=== PATIENT | female | born 1930 | race Caucasian/White ===

== ENCOUNTER 2017-06-30 17:22 | Inpatient (IN) ==
[2017-06-30 18:47] LABS: Basophils # 0.1 10*3/uL (0.0-0.2); Basophils % 1.1 % (0.0-0.8); Eosinophils # 0.1 10*3/uL (0.0-0.87); Eosinophils % 1.2 % (0.00-10.9); Hematocrit 38.5 VOL% (35.7-47.0); Hemoglobin 12.9 GM/DL (12.0-16.0); Immature Granulocytes % 0.3 %; Immature Granulocytes Absolute 0.02 #; Lymphocytes # 1.7 10*3/uL (1.4-4.0); Lymphocytes % 21.9 % (21.3-54.2); Mean Corpuscular HGB Conc 33.5 GM/DL (32-36); Mean Corpuscular Hemoglobin 31 PG (27-34); Mean Corpuscular Volume 92.1 FL (87-102); Mean Platelet Volume 10.5 FL (9.6-12.0); Monocytes # 0.8 10*3/uL (0.11-0.8); Monocytes % 10.5 % (1.7-12.7); Neutrophils # 4.9 10*3/uL (1.4-7.4); Platelet Count 277 T/CUMM (130-400); Red Blood Count 4.18 MC/CUMM (3.8-5.5); Red Cell Distribution Width 12.3 % (9.3-17.3); White Blood Count 7.6 T/CUMM (4-12)
[2017-06-30 18:57] LABS: PT Patient Result 10.5 SECS
[2017-06-30 19:10] LABS: Albumin 4.1 G/DL (3.4-5.0); Bilirubin,Total 0.5 MG/DL (0.2-1.0); Calcium 9.4 MG/DL (8.5-10.1); Osmolality,Calculated 277.7 MOS/KG (273-304); Potassium 3.8 MMOL/L (3.5-5.1); Total Protein 7.5 G/DL (6.4-8.3)
[2017-06-30 19:15] LABS: Magnesium 2.4 MG/DL (1.8-2.4)
[2017-06-30 19:16] LABS: Troponin I Only 0.166 NG/ML (0.00-0.045)
[2017-06-30] MEDS ORDERED: MAGNESIUM SULF RIDER 2 GM in PREMIX 1 EACH IV PRN (20:46)
[2017-06-30] MEDS ORDERED: MAGNESIUM SULF RIDER 4 GM in PREMIX 1 EACH IV PRN (20:46)
[2017-06-30] MEDS ORDERED: ONDANSETRON 4 MG/2 ML VIAL IV PRN (20:46)
[2017-06-30 22:02] LABS: CKMB % 9.4 %
[2017-06-30 22:06] LABS: Troponin I Only 0.852 NG/ML (0.00-0.045)
[2017-07-01 00:55] LABS: CKMB % 10.2 %
[2017-07-01 00:56] LABS: Troponin I Only 1.56 NG/ML (0.00-0.045)
[2017-07-01 05:41] LABS: CKMB % 8.7 %
[2017-07-01 05:50] LABS: Troponin I Only 1.58 NG/ML (0.00-0.045)
[2017-07-01] MEDS: METOPROLOL SUCCINATE XL 25 MG TABLET PO SCH (08:38)
[2017-07-01] MEDS: CLOPIDOGREL 75 MG TABLET PO SCH (08:38)
[2017-07-01] MEDS: DILTIAZEM CD 240 MG CAPSULE PO SCH (08:38)
[2017-07-01] MEDS: ASPIRIN EC 81 MG TABLET PO SCH (08:38)
[2017-07-01] MEDS: PANTOPRAZOLE 40 MG TABLET PO SCH (08:38)
[2017-07-01] MEDS ORDERED: BISACODYL 5 MG TABLET PO PRN (12:07)
[2017-07-01] MEDS ORDERED: DOCUSATE SODIUM 100 MG CAPSULE PO PRN (12:07)
[2017-07-01] MEDS ORDERED: MAGNESIUM SULF RIDER 4 GM in PREMIX 1 EACH IV PRN (12:07)
[2017-07-01] MEDS ORDERED: POTASSIUM CHLORIDE 20 MEQ TABLET PO PRN (12:07)
[2017-07-01] MEDS ORDERED: POTASSIUM CHLORIDE 20 MEQ/15 ML UDCUP PER TUBE PRN (12:07)
[2017-07-01] MEDS ORDERED: ZALEPLON 5 MG CAPSULE PO PRN (12:07)
[2017-07-01] MEDS ORDERED: MORPHINE 2 MG/1 ML SYRINGE IV PRN (12:07)
[2017-07-01] MEDS ORDERED: ACETAMINOPHEN 325 MG TABLET PO PRN (12:07)
[2017-07-01] MEDS ORDERED: MAGNESIUM SULF RIDER 2 GM in PREMIX 1 EACH IV PRN ×2 (12:07→15:54)
[2017-07-01] MEDS ORDERED: POLYETHYLENE GLYCOL POWDER 17 GM PACK PO PRN (12:12)
[2017-07-01] MEDS ORDERED: ENOXAPARIN 40 MG/0.4 ML SYRINGE SUBCUT SCH (12:30)
[2017-07-01] MEDS: ENOXAPARIN 60 MG/0.6 ML SYRINGE SUBCUT SCH (14:57)
[2017-07-01] MEDS ORDERED: POTASSIUM CHLORIDE RIDER 10 MEQ in PREMIX 1 EACH IV PRN (15:54)
[2017-07-01] MEDS: CILOSTAZOL 50 MG TABLET PO SCH (21:24)
[2017-07-01] MEDS: PITAVASTATIN 2 MG TABLET PO SCH (21:24)
[2017-07-02] MEDS: ENOXAPARIN 60 MG/0.6 ML SYRINGE SUBCUT SCH ×2 (04:54→15:33)
[2017-07-02 04:58] LABS: Basophils # 0.1 10*3/uL (0.0-0.2); Basophils % 1.3 % (0.0-0.8); Eosinophils # 0.3 10*3/uL (0.0-0.87); Eosinophils % 4.6 % (0.00-10.9); Hematocrit 36.5 VOL% (35.7-47.0); Hemoglobin 11.8 GM/DL (12.0-16.0); Immature Granulocytes % 0.1 %; Immature Granulocytes Absolute 0.01 #; Lymphocytes # 2.3 10*3/uL (1.4-4.0); Lymphocytes % 33.8 % (21.3-54.2); Mean Corpuscular HGB Conc 32.3 GM/DL (32-36); Mean Corpuscular Hemoglobin 31 PG (27-34); Mean Corpuscular Volume 94.3 FL (87-102); Mean Platelet Volume 10.9 FL (9.6-12.0); Monocytes # 0.9 10*3/uL (0.11-0.8); Monocytes % 13.6 % (1.7-12.7); Neutrophils # 3.1 10*3/uL (1.4-7.4); Neutrophils % 46.6 % (38.7-73.9); Platelet Count 258 T/CUMM (130-400); Red Blood Count 3.87 MC/CUMM (3.8-5.5); Red Cell Distribution Width 12.5 % (9.3-17.3); White Blood Count 6.7 T/CUMM (4-12)
[2017-07-02 05:35] LABS: Calcium 8.7 MG/DL (8.5-10.1); Magnesium 2.5 MG/DL (1.8-2.4); Osmolality,Calculated 284.1 MOS/KG (273-304); Potassium 4.6 MMOL/L (3.5-5.1); Risk Ratio 3.84; Thyroid Stimulating Hormone 3.28 uIU/ml (0.358-3.74)
[2017-07-02] MEDS ORDERED: prednisoLONE 5 MG TABLET PO SCH (06:30)
[2017-07-02] MEDS ORDERED: DIAZEPAM 5 MG TABLET PO ONE (07:00)
[2017-07-02] MEDS ORDERED: diphenhydrAMINE CAP 25 MG CAPSULE PO ONE (07:00)
[2017-07-02] MEDS: DILTIAZEM CD 240 MG CAPSULE PO SCH (08:05)
[2017-07-02] MEDS: CILOSTAZOL 50 MG TABLET PO SCH ×2 (08:05→21:16)
[2017-07-02] MEDS: PANTOPRAZOLE 40 MG TABLET PO SCH (08:05)
[2017-07-02] MEDS: CLOPIDOGREL 75 MG TABLET PO SCH (08:05)
[2017-07-02] MEDS: ASPIRIN EC 81 MG TABLET PO SCH (08:05)
[2017-07-02] MEDS: METOPROLOL SUCCINATE XL 25 MG TABLET PO SCH (08:05)
[2017-07-02] MEDS: hydroCHLOROthiazide 12.5 MG CAPSULE PO SCH (08:09)
[2017-07-02] MEDS ORDERED: NITROGLYCERIN DRIP 50 MG/250 ML BOTTLE IV ONE (08:40)
[2017-07-02] MEDS ORDERED: HEPARIN/NACL 0.9% 2 UNITS/ML 2,000 ML IV ONE (08:40)
[2017-07-02] MEDS ORDERED: LIDOCAINE 1% 20 ML VIAL ONE (08:40)
[2017-07-02] MEDS ORDERED: VERAPAMIL 5 MG/2 ML VIAL ONE (08:41)
[2017-07-02] MEDS ORDERED: HYDROmorphone 2 MG/1 ML VIAL ONE (08:50)
[2017-07-02] MEDS ORDERED: MIDAZOLAM 2 MG/2 ML VIAL ONE (08:50)
[2017-07-02] MEDS ORDERED: ONDANSETRON 4 MG/2 ML VIAL ONE (08:58)
[2017-07-02] MEDS ORDERED: CLOPIDOGREL 300 MG TABLET ONE (09:12)
[2017-07-02] MEDS ORDERED: SODIUM CHLORIDE 0.9% 1,000 ML IV SCH (10:00)
[2017-07-02] MEDS: PITAVASTATIN 2 MG TABLET PO SCH (21:16)
[2017-07-03] MEDS: ENOXAPARIN 60 MG/0.6 ML SYRINGE SUBCUT SCH (04:02)
[2017-07-03 05:09] LABS: Basophils # 0.1 10*3/uL (0.0-0.2); Basophils % 1.3 % (0.0-0.8); Eosinophils # 0.4 10*3/uL (0.0-0.87); Eosinophils % 5.9 % (0.00-10.9); Hematocrit 34.6 VOL% (35.7-47.0); Hemoglobin 11.5 GM/DL (12.0-16.0); Immature Granulocytes % 0.4 %; Immature Granulocytes Absolute 0.03 #; Lymphocytes # 1.6 10*3/uL (1.4-4.0); Lymphocytes % 22.7 % (21.3-54.2); Mean Corpuscular HGB Conc 33.2 GM/DL (32-36); Mean Corpuscular Hemoglobin 31 PG (27-34); Mean Corpuscular Volume 92.8 FL (87-102); Mean Platelet Volume 10.9 FL (9.6-12.0); Monocytes % 14.9 % (1.7-12.7); Neutrophils # 3.8 10*3/uL (1.4-7.4); Neutrophils % 54.8 % (38.7-73.9); Platelet Count 252 T/CUMM (130-400); Red Blood Count 3.73 MC/CUMM (3.8-5.5); Red Cell Distribution Width 12.6 % (9.3-17.3)
[2017-07-03 05:46] LABS: Blood Urea Nitrogen 19 MG/DL (7-18); Calcium 8.8 MG/DL (8.5-10.1); Glucose 97 MG/DL (74-106); Osmolality,Calculated 282.3 MOS/KG (273-304); Potassium 4.6 MMOL/L (3.5-5.1); Sodium 141 MMOL/L (136-145)
[2017-07-03 05:47] LABS: Troponin I Only 0.603 NG/ML (0.00-0.045)
[2017-07-03 06:07] LABS: Calcium 8.3 MG/DL (8.5-10.1); Magnesium 2.4 MG/DL (1.8-2.4); Osmolality,Calculated 283.3 MOS/KG (273-304); Potassium 4.6 MMOL/L (3.5-5.1)
[2017-07-03] MEDS: ASPIRIN EC 81 MG TABLET PO SCH (09:18)
[2017-07-03] MEDS: DILTIAZEM CD 240 MG CAPSULE PO SCH (09:18)
[2017-07-03] MEDS: CILOSTAZOL 50 MG TABLET PO SCH (09:19)
[2017-07-03] MEDS: METOPROLOL SUCCINATE XL 25 MG TABLET PO SCH ×2 (09:19→21:48)
[2017-07-03] MEDS: PANTOPRAZOLE 40 MG TABLET PO SCH (09:19)
[2017-07-03] MEDS: CLOPIDOGREL 75 MG TABLET PO SCH (09:19)
[2017-07-03] MEDS: hydroCHLOROthiazide 12.5 MG CAPSULE PO SCH (09:19)
[2017-07-03] MEDS ORDERED: METOPROLOL SUCCINATE XL 25 MG TABLET PO STA (11:09)
[2017-07-03] MEDS ORDERED: DILTIAZEM INJ 100 MG in SODIUM CHLORIDE 0.9% 100 ML IV SCH (11:30)
[2017-07-03] MEDS ORDERED: ENOXAPARIN 30 MG/0.3 ML SYRINGE SUBCUT SCH (16:00)
[2017-07-03] MEDS ORDERED: SIMETHICONE CHEW 80 MG TABLET PO PRN (16:30)
[2017-07-03] MEDS: ASCORBIC ACID 500 MG TABLET PO SCH (21:48)
[2017-07-03] MEDS: PITAVASTATIN 2 MG TABLET PO SCH (21:48)
[2017-07-03] MEDS: APIXABAN 2.5 MG TABLET PO SCH (21:49)
[2017-07-04 05:00] LABS: Basophils % 0.2 % (0.0-0.8); Eosinophils % 0.3 % (0.00-10.9); Hematocrit 31.9 VOL% (35.7-47.0); Hemoglobin 10.6 GM/DL (12.0-16.0); Immature Granulocytes % 0.4 %; Immature Granulocytes Absolute 0.04 #; Lymphocytes # 1.6 10*3/uL (1.4-4.0); Lymphocytes % 16.3 % (21.3-54.2); Mean Corpuscular HGB Conc 33.2 GM/DL (32-36); Mean Corpuscular Hemoglobin 31 PG (27-34); Mean Platelet Volume 10.9 FL (9.6-12.0); Monocytes % 10.6 % (1.7-12.7); Neutrophils # 7.1 10*3/uL (1.4-7.4); Neutrophils % 72.2 % (38.7-73.9); Platelet Count 260 T/CUMM (130-400); Red Blood Count 3.43 MC/CUMM (3.8-5.5); Red Cell Distribution Width 12.1 % (9.3-17.3); White Blood Count 9.8 T/CUMM (4-12)
[2017-07-04 05:35] LABS: Calcium 8.9 MG/DL (8.5-10.1); Magnesium 2.4 MG/DL (1.8-2.4); Osmolality,Calculated 284.3 MOS/KG (273-304); Potassium 4.1 MMOL/L (3.5-5.1)
[2017-07-04] MEDS: CLOPIDOGREL 75 MG TABLET PO SCH (09:05)
[2017-07-04] MEDS: APIXABAN 2.5 MG TABLET PO SCH (09:05)
[2017-07-04] MEDS: ASCORBIC ACID 500 MG TABLET PO SCH (09:05)
[2017-07-04] MEDS: ASPIRIN EC 81 MG TABLET PO SCH (09:05)
[2017-07-04] MEDS: hydroCHLOROthiazide 12.5 MG CAPSULE PO SCH (09:06)
[2017-07-04] MEDS: PANTOPRAZOLE 40 MG TABLET PO SCH (09:06)
[2017-07-04] MEDS: METOPROLOL SUCCINATE XL 25 MG TABLET PO SCH (09:06)
[2017-07-04] MEDS: DILTIAZEM CD 240 MG CAPSULE PO SCH (09:08)
[2017-07-04 12:26] VITALS: BP 126/61
== END 2017-07-04 14:15 | disposition home or self-care (01) | DRG 247 ==
LOC: EDUNIT# → EDBD → N.EDINP 17:22 → N.ED 17:22 → SUATTDRO 19:42 → N.TELES 23:36
PROVIDERS: ADMIT Internal Medicine Cardiovascular Disease; ATTEND Internal Medicine Cardiovascular Disease

== ENCOUNTER 2018-07-20 10:51 | Inpatient (IN) ==
[2018-07-20] MEDS ORDERED: ONDANSETRON 4 MG/2 ML VIAL IV STA (11:29)
[2018-07-20] MEDS ORDERED: NITROGLYCERIN 2% OINT 1 INCH/GM PACK TOP STA (11:29)
[2018-07-20] MEDS ORDERED: ASPIRIN 325 MG TABLET PO STA (11:29)
[2018-07-20] MEDS ORDERED: METOPROLOL TARTRATE 5 MG/5 ML VIAL IV STA (11:43)
[2018-07-20 12:14] LABS: Basophils # 0.1 10*3/uL (0.0-0.2); Basophils % 0.6 % (0.0-0.8); Eosinophils # 0.1 10*3/uL (0.0-0.87); Hematocrit 44.5 VOL% (35.7-47.0); Hemoglobin 14.8 GM/DL (12.0-16.0); Immature Granulocytes % 0.3 %; Immature Granulocytes Absolute 0.04 #; Lymphocytes # 1.7 10*3/uL (1.4-4.0); Mean Corpuscular HGB Conc 33.3 GM/DL (32-36); Mean Corpuscular Hemoglobin 32 PG (27-34); Mean Corpuscular Volume 95.9 FL (87-102); Mean Platelet Volume 11.4 FL (9.6-12.0); Monocytes # 1.2 10*3/uL (0.11-0.8); Monocytes % 9.7 % (1.7-12.7); Neutrophils # 8.9 10*3/uL (1.4-7.4); Neutrophils % 74.4 % (38.7-73.9); Platelet Count 278 T/CUMM (130-400); Red Blood Count 4.64 MC/CUMM (3.8-5.5); Red Cell Distribution Width 12.2 % (9.3-17.3)
[2018-07-20 12:19] LABS: Apearance,Urine CLEAR (Clear); Bilirubin,Urine Negative (Negative); Blood, Urine Negative (Negative); Glucose,Urine (UA) Negative (Negative); Ketones,Urine Negative (Negative); Nitrite,Urine Negative (Negative); Protein,Urine Negative; RBC,Urine <1 /HPF (0-4); Urine Color Colorless (Yellow); Urine Specific Gravity 1.005 (1.001-1.035); Urine Urobilinogen < 2.0 EU/DL (0.2-1.0)
[2018-07-20 12:52] LABS: Partial Thromboplastin Time 26.6 SECS (0-40)
[2018-07-20 13:40] LABS: Albumin 3.7 G/DL (3.4-5.0); Bilirubin,Total 0.5 MG/DL (0.2-1.0); CKMB % 8.4 %; Calcium 8.8 MG/DL (8.5-10.1); Osmolality,Calculated 278.5 MOS/KG (273-304); Potassium 3.4 MMOL/L (3.5-5.1); Total Protein 6.8 G/DL (6.4-8.3)
[2018-07-20 13:46] LABS: Troponin I 0.377 NG/ML (0.00-0.045)
[2018-07-20] MEDS ORDERED: MAGNESIUM SULF RIDER 4 GM in PREMIX 1 EACH IV PRN (15:04)
[2018-07-20] MEDS ORDERED: MAGNESIUM SULF RIDER 2 GM in PREMIX 1 EACH IV PRN (15:04)
[2018-07-20] MEDS ORDERED: ZALEPLON 5 MG CAPSULE PO PRN (15:04)
[2018-07-20] MEDS ORDERED: ACETAMINOPHEN 325 MG TABLET PO PRN (15:04)
[2018-07-20] MEDS ORDERED: DOCUSATE SODIUM 100 MG CAPSULE PO PRN (15:04)
[2018-07-20] MEDS: FUROSEMIDE 40 MG/4 ML VIAL IV SCH (18:14)
[2018-07-20] MEDS: POTASSIUM CHLORIDE 20 MEQ TABLET PO SCH (18:14)
[2018-07-20] MEDS: ENOXAPARIN 60 MG/0.6 ML SYRINGE SUBCUT SCH (18:14)
[2018-07-20] MEDS: NITROGLYCERIN 2% OINT 1 INCH/GM PACK TOP SCH ×2 (18:15→23:34)
[2018-07-20] MEDS: METOPROLOL TARTRATE 50 MG TABLET PO SCH (20:36)
[2018-07-20] MEDS: SOTALOL 80 MG TABLET PO SCH (20:36)
[2018-07-20] MEDS: ASCORBIC ACID 500 MG TABLET PO SCH (20:59)
[2018-07-20] MEDS: MULTIVITAMIN (CENTRUM) TABLET PO SCH (20:59)
[2018-07-21 05:37] LABS: Basophils # 0.1 10*3/uL (0.0-0.2); Eosinophils # 0.1 10*3/uL (0.0-0.87); Eosinophils % 1.7 % (0.00-10.9); Hematocrit 36.9 VOL% (35.7-47.0); Immature Granulocytes % 0.4 %; Immature Granulocytes Absolute 0.03 #; Lymphocytes # 2.7 10*3/uL (1.4-4.0); Lymphocytes % 32.7 % (21.3-54.2); Mean Corpuscular HGB Conc 32.5 GM/DL (32-36); Mean Corpuscular Hemoglobin 32 PG (27-34); Mean Corpuscular Volume 96.9 FL (87-102); Monocytes % 12.3 % (1.7-12.7); Neutrophils # 4.4 10*3/uL (1.4-7.4); Neutrophils % 51.9 % (38.7-73.9); Platelet Count 223 T/CUMM (130-400); Red Blood Count 3.81 MC/CUMM (3.8-5.5); Red Cell Distribution Width 12.4 % (9.3-17.3); White Blood Count 8.4 T/CUMM (4-12)
[2018-07-21 05:52] LABS: Calcium 8.7 MG/DL (8.5-10.1); Osmolality,Calculated 280.4 MOS/KG (273-304); Potassium 3.7 MMOL/L (3.5-5.1)
[2018-07-21] MEDS: ENOXAPARIN 60 MG/0.6 ML SYRINGE SUBCUT SCH ×2 (06:00→17:29)
[2018-07-21] MEDS: NITROGLYCERIN 2% OINT 1 INCH/GM PACK TOP SCH ×3 (06:23→17:29)
[2018-07-21] MEDS ORDERED: MAGNESIUM SULF RIDER 2 GM in PREMIX 1 EACH IV PRN ×2 (08:59→09:22)
[2018-07-21] MEDS ORDERED: POTASSIUM CHLORIDE RIDER 10 MEQ in PREMIX 1 EACH IV PRN ×2 (08:59→09:22)
[2018-07-21] MEDS ORDERED: FUROSEMIDE 40 MG TABLET PO SCH (09:00)
[2018-07-21] MEDS ORDERED: DILTIAZEM CD 240 MG CAPSULE PO SCH (09:00)
[2018-07-21] MEDS: ASPIRIN EC 81 MG TABLET PO SCH (09:09)
[2018-07-21] MEDS: DOCUSATE SODIUM 100 MG CAPSULE PO SCH (09:10)
[2018-07-21] MEDS: SOTALOL 80 MG TABLET PO SCH ×2 (09:10→21:11)
[2018-07-21] MEDS: ASCORBIC ACID 500 MG TABLET PO SCH ×2 (09:10→21:11)
[2018-07-21] MEDS: CLOPIDOGREL 75 MG TABLET PO SCH (09:10)
[2018-07-21] MEDS: FUROSEMIDE 40 MG/4 ML VIAL IV SCH (09:10)
[2018-07-21] MEDS: POTASSIUM CHLORIDE 20 MEQ TABLET PO SCH (09:10)
[2018-07-21] MEDS: MULTIVITAMIN (CENTRUM) TABLET PO SCH ×2 (09:10→21:11)
[2018-07-21] MEDS: METOPROLOL TARTRATE 50 MG TABLET PO SCH ×2 (09:10→21:12)
[2018-07-21] MEDS: PANTOPRAZOLE 40 MG TABLET PO SCH (09:10)
[2018-07-21] MEDS ORDERED: diphenhydrAMINE CAP 25 MG CAPSULE PO PRN (09:40)
[2018-07-21] MEDS ORDERED: MAGNESIUM HYDROXIDE SUSP 30 ML UDCUP PO ONE (09:40)
[2018-07-21] MEDS: ROSUVASTATIN 10 MG TABLET PO SCH (21:11)
[2018-07-22] MEDS: NITROGLYCERIN 2% OINT 1 INCH/GM PACK TOP SCH ×4 (02:28→11:09)
[2018-07-22] MEDS: SODIUM CHLORIDE 0.45% 1,000 ML IV SCH ×4 (05:00→22:48)
[2018-07-22 05:56] LABS: Basophils # 0.1 10*3/uL (0.0-0.2); Basophils % 0.6 % (0.0-0.8); Eosinophils # 0.1 10*3/uL (0.0-0.87); Eosinophils % 1.4 % (0.00-10.9); Hematocrit 36.1 VOL% (35.7-47.0); Hemoglobin 11.8 GM/DL (12.0-16.0); Immature Granulocytes % 0.3 %; Immature Granulocytes Absolute 0.03 #; Lymphocytes # 2.9 10*3/uL (1.4-4.0); Lymphocytes % 30.2 % (21.3-54.2); Mean Corpuscular HGB Conc 32.7 GM/DL (32-36); Mean Corpuscular Hemoglobin 32 PG (27-34); Mean Corpuscular Volume 97.3 FL (87-102); Mean Platelet Volume 11.8 FL (9.6-12.0); Monocytes # 1.4 10*3/uL (0.11-0.8); Monocytes % 13.9 % (1.7-12.7); Neutrophils # 5.2 10*3/uL (1.4-7.4); Neutrophils % 53.6 % (38.7-73.9); Platelet Count 224 T/CUMM (130-400); Red Blood Count 3.71 MC/CUMM (3.8-5.5); Red Cell Distribution Width 12.4 % (9.3-17.3); White Blood Count 9.7 T/CUMM (4-12)
[2018-07-22 06:03] LABS: Calcium 8.8 MG/DL (8.5-10.1); Osmolality,Calculated 280.5 MOS/KG (273-304)
[2018-07-22] MEDS: ONDANSETRON 4 MG/2 ML VIAL IV PRN (07:40)
[2018-07-22] MEDS: MORPHINE 4 MG/1 ML VIAL IV PRN (07:46)
[2018-07-22] MEDS: METOPROLOL TARTRATE 50 MG TABLET PO SCH ×2 (09:53→20:49)
[2018-07-22] MEDS: PANTOPRAZOLE 40 MG TABLET PO SCH (09:53)
[2018-07-22] MEDS: SOTALOL 80 MG TABLET PO SCH ×2 (09:53→20:49)
[2018-07-22] MEDS: ASCORBIC ACID 500 MG TABLET PO SCH ×2 (09:54→21:08)
[2018-07-22] MEDS: MULTIVITAMIN (CENTRUM) TABLET PO SCH ×2 (09:54→21:08)
[2018-07-22] MEDS: DOCUSATE SODIUM 100 MG CAPSULE PO SCH (09:54)
[2018-07-22] MEDS: ASPIRIN EC 81 MG TABLET PO SCH (10:24)
[2018-07-22] MEDS: CLOPIDOGREL 75 MG TABLET PO SCH (10:25)
[2018-07-22] MEDS ORDERED: LIDOCAINE 1% 20 ML VIAL ONE (10:51)
[2018-07-22] MEDS ORDERED: HEPARIN/NACL 0.9% 2 UNITS/ML 1,000 ML IV ONE (10:51)
[2018-07-22] MEDS ORDERED: DIAZEPAM 5 MG TABLET PO ONE (11:00)
[2018-07-22] MEDS ORDERED: diphenhydrAMINE CAP 25 MG CAPSULE PO ONE (11:00)
[2018-07-22] MEDS ORDERED: NITROGLYCERIN DRIP 50 MG/250 ML BOTTLE IV ONE (11:09)
[2018-07-22] MEDS ORDERED: HYDROmorphone 2 MG/1 ML VIAL ONE (11:09)
[2018-07-22] MEDS ORDERED: MIDAZOLAM 2 MG/2 ML VIAL ONE (11:10)
[2018-07-22] MEDS ORDERED: VERAPAMIL 5 MG/2 ML VIAL ONE (11:10)
[2018-07-22] MEDS ORDERED: ONDANSETRON 4 MG/2 ML VIAL ONE (11:18)
[2018-07-22] MEDS ORDERED: ENOXAPARIN 30 MG/0.3 ML SYRINGE ONE (11:31)
[2018-07-22] MEDS: POTASSIUM CHLORIDE 20 MEQ TABLET PO SCH (14:55)
[2018-07-22] MEDS: FUROSEMIDE 40 MG/4 ML VIAL IV SCH (16:02)
[2018-07-22 19:14] LABS: Basophils # 0.1 10*3/uL (0.0-0.2); Basophils % 0.6 % (0.0-0.8); Eosinophils # 0.1 10*3/uL (0.0-0.87); Eosinophils % 0.8 % (0.00-10.9); Hematocrit 37.7 VOL% (35.7-47.0); Hemoglobin 12.3 GM/DL (12.0-16.0); Immature Granulocytes % 0.5 %; Immature Granulocytes Absolute 0.08 #; Lymphocytes # 1.7 10*3/uL (1.4-4.0); Lymphocytes % 10.4 % (21.3-54.2); Mean Corpuscular HGB Conc 32.6 GM/DL (32-36); Mean Corpuscular Hemoglobin 32 PG (27-34); Mean Corpuscular Volume 98.4 FL (87-102); Mean Platelet Volume 11.1 FL (9.6-12.0); Monocytes # 2.7 10*3/uL (0.11-0.8); Monocytes % 15.9 % (1.7-12.7); Neutrophils % 71.8 % (38.7-73.9); Platelet Count 231 T/CUMM (130-400); Red Blood Count 3.83 MC/CUMM (3.8-5.5); Red Cell Distribution Width 12.3 % (9.3-17.3); White Blood Count 16.7 T/CUMM (4-12)
[2018-07-22 20:58] LABS: Band Neutrophils 1 % (0-10); Lymphocytes 11 % (20-55); Platelet Estimate Normal; Segmented Neutrophils 76 % (50-85); Total Cells Counted 100
[2018-07-23 05:50] LABS: Calcium 8.2 MG/DL (8.5-10.1); Osmolality,Calculated 263.7 MOS/KG (273-304); Potassium 4.2 MMOL/L (3.5-5.1)
[2018-07-23] MEDS: SODIUM CHLORIDE 0.45% 1,000 ML IV SCH ×3 (06:18→21:09)
[2018-07-23 07:17] LABS: Basophils # 0.1 10*3/uL (0.0-0.2); Basophils % 0.5 % (0.0-0.8); Eosinophils # 0.2 10*3/uL (0.0-0.87); Eosinophils % 1.8 % (0.00-10.9); Hemoglobin 11.9 GM/DL (12.0-16.0); Immature Granulocytes % 0.5 %; Immature Granulocytes Absolute 0.06 #; Lymphocytes # 2.2 10*3/uL (1.4-4.0); Lymphocytes % 19.4 % (21.3-54.2); Mean Corpuscular HGB Conc 33.1 GM/DL (32-36); Mean Corpuscular Hemoglobin 32 PG (27-34); Mean Corpuscular Volume 98.1 FL (87-102); Mean Platelet Volume 11.3 FL (9.6-12.0); Monocytes # 1.6 10*3/uL (0.11-0.8); Monocytes % 14.3 % (1.7-12.7); Neutrophils # 7.2 10*3/uL (1.4-7.4); Neutrophils % 63.5 % (38.7-73.9); Platelet Count 207 T/CUMM (130-400); Red Blood Count 3.67 MC/CUMM (3.8-5.5); Red Cell Distribution Width 12.1 % (9.3-17.3); White Blood Count 11.4 T/CUMM (4-12)
[2018-07-23] MEDS ORDERED: ISOSORBIDE MONONITRATE 30 MG TABLET PO SCH (09:00)
[2018-07-23] MEDS: MULTIVITAMIN (CENTRUM) TABLET PO SCH ×2 (09:16→21:21)
[2018-07-23] MEDS: CLOPIDOGREL 75 MG TABLET PO SCH (09:16)
[2018-07-23] MEDS: ASPIRIN EC 81 MG TABLET PO SCH (09:16)
[2018-07-23] MEDS: ASCORBIC ACID 500 MG TABLET PO SCH ×2 (09:16→21:21)
[2018-07-23] MEDS: DOCUSATE SODIUM 100 MG CAPSULE PO SCH (09:17)
[2018-07-23] MEDS: POTASSIUM CHLORIDE 20 MEQ TABLET PO SCH (09:17)
[2018-07-23] MEDS: PANTOPRAZOLE 40 MG TABLET PO SCH (09:17)
[2018-07-23] MEDS: SOTALOL 80 MG TABLET PO SCH ×2 (09:18→21:09)
[2018-07-23] MEDS: FUROSEMIDE 40 MG/4 ML VIAL IV SCH (09:19)
[2018-07-23] MEDS: METOPROLOL TARTRATE 50 MG TABLET PO SCH ×2 (09:19→21:10)
[2018-07-23] MEDS: DOXYCYCLINE HYCLATE 100 MG CAPSULE PO SCH ×2 (13:26→22:51)
[2018-07-23] MEDS ORDERED: NITROGLYCERIN SL 0.4 MG TABLET SL ONE ×2 (18:32→18:44)
[2018-07-23] MEDS ORDERED: ALUM/MAG/SIMETH/LIDO VISC 1:1 30 ML BOTTLE PO ONE ×2 (19:05→19:07)
[2018-07-23] MEDS: MORPHINE 4 MG/1 ML VIAL IV PRN (19:42)
[2018-07-23] MEDS: ROSUVASTATIN 10 MG TABLET PO SCH (21:21)
[2018-07-24] MEDS: NITROGLYCERIN SL 0.4 MG TABLET SL PRN ×6 (01:57→19:59)
[2018-07-24] MEDS: MORPHINE 4 MG/1 ML VIAL IV PRN ×2 (02:00→19:42)
[2018-07-24] MEDS: SODIUM CHLORIDE 0.45% 1,000 ML IV SCH (03:53)
[2018-07-24] MEDS: PANTOPRAZOLE 40 MG TABLET PO SCH (08:45)
[2018-07-24] MEDS: ASCORBIC ACID 500 MG TABLET PO SCH ×2 (08:45→21:31)
[2018-07-24] MEDS: POTASSIUM CHLORIDE 20 MEQ TABLET PO SCH (08:45)
[2018-07-24] MEDS: ASPIRIN EC 81 MG TABLET PO SCH (08:45)
[2018-07-24] MEDS: DOCUSATE SODIUM 100 MG CAPSULE PO SCH (08:45)
[2018-07-24] MEDS: CLOPIDOGREL 75 MG TABLET PO SCH (08:45)
[2018-07-24] MEDS: MULTIVITAMIN (CENTRUM) TABLET PO SCH ×2 (08:45→21:31)
[2018-07-24] MEDS: SOTALOL 80 MG TABLET PO SCH ×2 (08:46→21:31)
[2018-07-24] MEDS: ISOSORBIDE MONONITRATE 30 MG TABLET PO SCH (08:46)
[2018-07-24] MEDS: METOPROLOL TARTRATE 50 MG TABLET PO SCH ×2 (08:46→21:31)
[2018-07-24] MEDS: DOXYCYCLINE HYCLATE 100 MG CAPSULE PO SCH ×2 (08:46→21:31)
[2018-07-24] MEDS: FUROSEMIDE 40 MG/4 ML VIAL IV SCH (08:47)
[2018-07-24] MEDS ORDERED: MAGNESIUM SULF RIDER 2 GM in PREMIX 1 EACH IV PRN (11:13)
[2018-07-24] MEDS ORDERED: POTASSIUM CHLORIDE RIDER 10 MEQ in PREMIX 1 EACH IV PRN (11:13)
[2018-07-24] MEDS ORDERED: SODIUM CHLORIDE 0.45% 1,000 ML IV SCH (11:30)
[2018-07-24 11:48] LABS: Apearance,Urine CLEAR (Clear); Bacteria,Urine Occasional /HPF (Few); Bilirubin,Urine Negative (Negative); Blood, Urine Negative (Negative); Glucose,Urine (UA) Negative (Negative); Ketones,Urine Negative (Negative); Mucus,Urine Occasional /LPF (Occasional); Nitrite,Urine Negative (Negative); Protein,Urine Negative; RBC,Urine 1 /HPF (0-4); Urine Color Yellow (Yellow); Urine Specific Gravity 1.005 (1.001-1.035); Urine Urobilinogen < 2.0 EU/DL (0.2-1.0)
[2018-07-24] MEDS ORDERED: ISOSORBIDE MONONITRATE 30 MG TABLET PO ONE (21:00)
[2018-07-25 04:21] LABS: Basophils # 0.1 10*3/uL (0.0-0.2); Basophils % 0.6 % (0.0-0.8); Eosinophils # 0.2 10*3/uL (0.0-0.87); Eosinophils % 2.1 % (0.00-10.9); Hematocrit 31.7 VOL% (35.7-47.0); Hemoglobin 10.5 GM/DL (12.0-16.0); Immature Granulocytes % 0.4 %; Immature Granulocytes Absolute 0.04 #; Lymphocytes # 2.5 10*3/uL (1.4-4.0); Lymphocytes % 23.4 % (21.3-54.2); Mean Corpuscular HGB Conc 33.1 GM/DL (32-36); Mean Corpuscular Hemoglobin 32 PG (27-34); Mean Corpuscular Volume 97.5 FL (87-102); Mean Platelet Volume 11.6 FL (9.6-12.0); Monocytes # 1.4 10*3/uL (0.11-0.8); Monocytes % 13.3 % (1.7-12.7); Neutrophils # 6.5 10*3/uL (1.4-7.4); Neutrophils % 60.2 % (38.7-73.9); Platelet Count 189 T/CUMM (130-400); Red Blood Count 3.25 MC/CUMM (3.8-5.5); Red Cell Distribution Width 12.3 % (9.3-17.3); White Blood Count 10.7 T/CUMM (4-12)
[2018-07-25 04:50] LABS: Calcium 8.8 MG/DL (8.5-10.1); Osmolality,Calculated 277.7 MOS/KG (273-304); Potassium 4.1 MMOL/L (3.5-5.1)
[2018-07-25] MEDS ORDERED: DIAZEPAM 5 MG TABLET PO ONE (06:00)
[2018-07-25] MEDS ORDERED: diphenhydrAMINE CAP 25 MG CAPSULE PO ONE (06:00)
[2018-07-25] MEDS: SODIUM CHLORIDE 0.45% 1,000 ML IV SCH ×3 (06:03→22:53)
[2018-07-25] MEDS: FUROSEMIDE 40 MG/4 ML VIAL IV SCH (08:43)
[2018-07-25] MEDS ORDERED: HEPARIN/NACL 0.9% 2 UNITS/ML 1,000 ML IV ONE (09:12)
[2018-07-25] MEDS: DOXYCYCLINE HYCLATE 100 MG CAPSULE PO SCH ×2 (11:28→22:36)
[2018-07-25] MEDS: PANTOPRAZOLE 40 MG TABLET PO SCH (11:28)
[2018-07-25] MEDS: ASPIRIN EC 81 MG TABLET PO SCH (11:28)
[2018-07-25] MEDS: CLOPIDOGREL 75 MG TABLET PO SCH (11:28)
[2018-07-25] MEDS: ISOSORBIDE MONONITRATE 30 MG TABLET PO SCH (11:28)
[2018-07-25] MEDS: ONDANSETRON 4 MG/2 ML VIAL IV PRN (11:40)
[2018-07-25] MEDS: POTASSIUM CHLORIDE 20 MEQ TABLET PO SCH (11:43)
[2018-07-25] MEDS: DOCUSATE SODIUM 100 MG CAPSULE PO SCH (11:43)
[2018-07-25] MEDS: METOPROLOL TARTRATE 50 MG TABLET PO SCH (11:43)
[2018-07-25] MEDS: MULTIVITAMIN (CENTRUM) TABLET PO SCH ×2 (11:43→21:52)
[2018-07-25] MEDS: SOTALOL 80 MG TABLET PO SCH ×2 (11:43→21:52)
[2018-07-25] MEDS: ASCORBIC ACID 500 MG TABLET PO SCH ×2 (11:44→21:52)
[2018-07-25] MEDS ORDERED: LIDOCAINE 1% 20 ML VIAL ONE (11:59)
[2018-07-25] MEDS ORDERED: HYDROmorphone 2 MG/1 ML VIAL ONE (12:08)
[2018-07-25] MEDS ORDERED: MIDAZOLAM 2 MG/2 ML VIAL ONE (12:08)
[2018-07-25] MEDS ORDERED: BIVALIRUDIN 250 MG VIAL IV ONE (12:59)
[2018-07-25] MEDS ORDERED: MAGNESIUM HYDROXIDE SUSP 30 ML UDCUP PO PRN (13:06)
[2018-07-25] MEDS ORDERED: BISACODYL 5 MG TABLET PO PRN (13:07)
[2018-07-25] MEDS ORDERED: LABETALOL 20 MG/4 ML SYRINGE IV ONE (13:51)
[2018-07-25] MEDS ORDERED: TICAGRELOR 90 MG TABLET ONE (13:56)
[2018-07-25] MEDS: TICAGRELOR 90 MG TABLET PO SCH (21:52)
[2018-07-25] MEDS: ROSUVASTATIN 10 MG TABLET PO SCH (21:52)
[2018-07-26 05:01] LABS: Basophils % 0.3 % (0.0-0.8); Eosinophils # 0.3 10*3/uL (0.0-0.87); Eosinophils % 2.2 % (0.00-10.9); Hematocrit 31.7 VOL% (35.7-47.0); Hemoglobin 10.6 GM/DL (12.0-16.0); Immature Granulocytes % 0.4 %; Immature Granulocytes Absolute 0.05 #; Lymphocytes # 1.7 10*3/uL (1.4-4.0); Lymphocytes % 14.3 % (21.3-54.2); Mean Corpuscular HGB Conc 33.4 GM/DL (32-36); Mean Corpuscular Hemoglobin 32 PG (27-34); Mean Corpuscular Volume 96.4 FL (87-102); Mean Platelet Volume 11.6 FL (9.6-12.0); Monocytes # 1.5 10*3/uL (0.11-0.8); Monocytes % 12.3 % (1.7-12.7); Neutrophils # 8.3 10*3/uL (1.4-7.4); Neutrophils % 70.5 % (38.7-73.9); Platelet Count 200 T/CUMM (130-400); Red Blood Count 3.29 MC/CUMM (3.8-5.5); Red Cell Distribution Width 12.2 % (9.3-17.3); White Blood Count 11.8 T/CUMM (4-12)
[2018-07-26 05:24] LABS: Troponin I 0.809 NG/ML (0.00-0.045)
[2018-07-26 05:26] LABS: Calcium 8.5 MG/DL (8.5-10.1); Osmolality,Calculated 264.5 MOS/KG (273-304); Potassium 4.5 MMOL/L (3.5-5.1)
[2018-07-26] MEDS: SODIUM CHLORIDE 0.45% 1,000 ML IV SCH (07:14)
[2018-07-26] MEDS: ASCORBIC ACID 500 MG TABLET PO SCH ×2 (09:06→20:39)
[2018-07-26] MEDS: SOTALOL 80 MG TABLET PO SCH ×2 (09:06→20:44)
[2018-07-26] MEDS: MULTIVITAMIN (CENTRUM) TABLET PO SCH ×2 (09:06→20:39)
[2018-07-26] MEDS: DOXYCYCLINE HYCLATE 100 MG CAPSULE PO SCH ×2 (09:06→20:39)
[2018-07-26] MEDS: PANTOPRAZOLE 40 MG TABLET PO SCH (09:06)
[2018-07-26] MEDS: POTASSIUM CHLORIDE 20 MEQ TABLET PO SCH (09:06)
[2018-07-26] MEDS: METOPROLOL TARTRATE 25 MG TABLET PO SCH (09:06)
[2018-07-26] MEDS: ISOSORBIDE MONONITRATE 30 MG TABLET PO SCH (09:06)
[2018-07-26] MEDS: DOCUSATE SODIUM 100 MG CAPSULE PO SCH (09:06)
[2018-07-26] MEDS: TICAGRELOR 90 MG TABLET PO SCH ×2 (09:06→20:39)
[2018-07-26] MEDS: ASPIRIN EC 81 MG TABLET PO SCH (09:06)
[2018-07-27 04:50] LABS: Basophils # 0.1 10*3/uL (0.0-0.2); Basophils % 0.5 % (0.0-0.8); Eosinophils # 0.3 10*3/uL (0.0-0.87); Eosinophils % 3.1 % (0.00-10.9); Hematocrit 28.8 VOL% (35.7-47.0); Hemoglobin 9.6 GM/DL (12.0-16.0); Immature Granulocytes % 0.4 %; Immature Granulocytes Absolute 0.04 #; Lymphocytes # 1.8 10*3/uL (1.4-4.0); Lymphocytes % 19.1 % (21.3-54.2); Mean Corpuscular HGB Conc 33.3 GM/DL (32-36); Mean Corpuscular Hemoglobin 32 PG (27-34); Mean Corpuscular Volume 96.6 FL (87-102); Mean Platelet Volume 11.6 FL (9.6-12.0); Monocytes # 1.4 10*3/uL (0.11-0.8); Monocytes % 15.1 % (1.7-12.7); Neutrophils # 5.7 10*3/uL (1.4-7.4); Neutrophils % 61.8 % (38.7-73.9); Platelet Count 172 T/CUMM (130-400); Red Blood Count 2.98 MC/CUMM (3.8-5.5); Red Cell Distribution Width 12.2 % (9.3-17.3); White Blood Count 9.3 T/CUMM (4-12)
[2018-07-27 05:01] LABS: Calcium 8.7 MG/DL (8.5-10.1); Osmolality,Calculated 273.8 MOS/KG (273-304); Potassium 4.2 MMOL/L (3.5-5.1)
[2018-07-27 07:53] VITALS: BP 151/72
[2018-07-27] MEDS: ISOSORBIDE MONONITRATE 30 MG TABLET PO SCH (10:04)
[2018-07-27] MEDS: TICAGRELOR 90 MG TABLET PO SCH (10:04)
[2018-07-27] MEDS: SOTALOL 80 MG TABLET PO SCH (10:04)
[2018-07-27] MEDS: ASPIRIN EC 81 MG TABLET PO SCH (10:04)
[2018-07-27] MEDS: METOPROLOL TARTRATE 25 MG TABLET PO SCH (10:04)
[2018-07-27] MEDS: PANTOPRAZOLE 40 MG TABLET PO SCH (10:04)
[2018-07-27] MEDS: ASCORBIC ACID 500 MG TABLET PO SCH (10:05)
[2018-07-27] MEDS: MULTIVITAMIN (CENTRUM) TABLET PO SCH (10:05)
[2018-07-27] MEDS: POTASSIUM CHLORIDE 20 MEQ TABLET PO SCH (10:05)
[2018-07-27] MEDS: DOCUSATE SODIUM 100 MG CAPSULE PO SCH (10:05)
[2018-07-27] MEDS: DOXYCYCLINE HYCLATE 100 MG CAPSULE PO SCH (10:12)
== END 2018-07-27 11:31 | disposition home or self-care (01) | DRG 247 ==
LOC: EDUNIT# → EDBD → N.ED 10:51 → N.EDINP 15:04 → N.TELES 16:11
PROVIDERS: ADMIT Internal Medicine Clinical Cardiac Electrophysiology; ATTEND Internal Medicine Clinical Cardiac Electrophysiology

== ENCOUNTER 2018-07-29 11:51 | Observation (INO) ==
[2018-07-29 12:49] LABS: Basophils # 0.1 10*3/uL (0.0-0.2); Basophils % 0.5 % (0.0-0.8); Eosinophils # 0.3 10*3/uL (0.0-0.87); Eosinophils % 2.7 % (0.00-10.9); Hematocrit 35.9 VOL% (35.7-47.0); Hemoglobin 11.7 GM/DL (12.0-16.0); Immature Granulocytes % 0.7 %; Immature Granulocytes Absolute 0.08 #; Lymphocytes # 1.6 10*3/uL (1.4-4.0); Lymphocytes % 13.9 % (21.3-54.2); Mean Corpuscular HGB Conc 32.6 GM/DL (32-36); Mean Corpuscular Hemoglobin 32 PG (27-34); Mean Corpuscular Volume 98.6 FL (87-102); Mean Platelet Volume 10.7 FL (9.6-12.0); Monocytes # 1.6 10*3/uL (0.11-0.8); Monocytes % 13.3 % (1.7-12.7); Neutrophils # 8.1 10*3/uL (1.4-7.4); Neutrophils % 68.9 % (38.7-73.9); Platelet Count 253 T/CUMM (130-400); Red Blood Count 3.64 MC/CUMM (3.8-5.5); Red Cell Distribution Width 13.1 % (9.3-17.3); White Blood Count 11.7 T/CUMM (4-12)
[2018-07-29 13:09] LABS: Albumin 3.4 G/DL (3.4-5.0); Bilirubin,Total 0.6 MG/DL (0.2-1.0); Calcium 9.3 MG/DL (8.5-10.1); Potassium 3.9 MMOL/L (3.5-5.1); Total Protein 6.9 G/DL (6.4-8.3)
[2018-07-29] MEDS ORDERED: MAGNESIUM SULF RIDER 4 GM in PREMIX 1 EACH IV PRN (14:25)
[2018-07-29] MEDS ORDERED: ONDANSETRON 4 MG/2 ML VIAL IV PRN (14:25)
[2018-07-29] MEDS ORDERED: PROMETHAZINE 25 MG TABLET PO PRN (14:25)
[2018-07-29] MEDS ORDERED: ZALEPLON 5 MG CAPSULE PO PRN (14:25)
[2018-07-29] MEDS ORDERED: BISACODYL 5 MG TABLET PO PRN (14:25)
[2018-07-29] MEDS ORDERED: DOCUSATE SODIUM 100 MG CAPSULE PO PRN (14:25)
[2018-07-29] MEDS ORDERED: diphenhydrAMINE CAP 25 MG CAPSULE PO PRN (14:25)
[2018-07-29] MEDS ORDERED: MAGNESIUM SULF RIDER 2 GM in PREMIX 1 EACH IV PRN (14:25)
[2018-07-29] MEDS ORDERED: ENOXAPARIN 40 MG/0.4 ML SYRINGE SUBCUT ONE (14:27)
[2018-07-29] MEDS ORDERED: MORPHINE 4 MG/1 ML VIAL IV PRN (14:29)
[2018-07-29] MEDS: MULTIVITAMIN (CENTRUM) TABLET PO SCH (21:09)
[2018-07-29] MEDS: ASCORBIC ACID 500 MG TABLET PO SCH (21:09)
[2018-07-29] MEDS: SOTALOL 80 MG TABLET PO SCH (21:09)
[2018-07-29] MEDS: NITROGLYCERIN SL 0.4 MG TABLET SL PRN ×2 (21:18→21:24)
[2018-07-29] MEDS ORDERED: dilTIAZem Drip 125 MG/125 ML PREMIX IV ONE (21:42)
[2018-07-29] MEDS: dilTIAZem Drip 125 MG/125 ML PREMIX IV SCH (21:56)
[2018-07-30 04:22] LABS: Basophils # 0.1 10*3/uL (0.0-0.2); Basophils % 0.7 % (0.0-0.8); Eosinophils # 0.3 10*3/uL (0.0-0.87); Eosinophils % 2.5 % (0.00-10.9); Hematocrit 31.6 VOL% (35.7-47.0); Hemoglobin 10.3 GM/DL (12.0-16.0); Immature Granulocytes % 0.5 %; Immature Granulocytes Absolute 0.06 #; Lymphocytes # 2.4 10*3/uL (1.4-4.0); Lymphocytes % 20.9 % (21.3-54.2); Mean Corpuscular HGB Conc 32.6 GM/DL (32-36); Mean Corpuscular Hemoglobin 32 PG (27-34); Mean Corpuscular Volume 98.8 FL (87-102); Mean Platelet Volume 11.2 FL (9.6-12.0); Monocytes # 1.3 10*3/uL (0.11-0.8); Monocytes % 11.3 % (1.7-12.7); Neutrophils # 7.5 10*3/uL (1.4-7.4); Neutrophils % 64.1 % (38.7-73.9); Platelet Count 233 T/CUMM (130-400); White Blood Count 11.7 T/CUMM (4-12)
[2018-07-30 04:47] LABS: Alanine Aminotransferase 16 U/L (13-56); Albumin 2.6 G/DL (3.4-5.0); Alkaline Phosphatase 87 U/L (45-117); Aspartate Amino Transferase 14 U/L (0-37); Blood Urea Nitrogen 20 MG/DL (7-18); Calcium 8.9 MG/DL (8.5-10.1); Glucose 102 MG/DL (74-106); Osmolality,Calculated 277.7 MOS/KG (273-304); Potassium 3.8 MMOL/L (3.5-5.1); Sodium 138 MMOL/L (136-145); Total Protein 5.6 G/DL (6.4-8.3)
[2018-07-30 04:55] LABS: Troponin I 0.154 NG/ML (0.00-0.045)
[2018-07-30] MEDS ORDERED: TICAGRELOR 90 MG TABLET PO ONE (08:49)
[2018-07-30] MEDS ORDERED: METOPROLOL TARTRATE 25 MG TABLET PO SCH (09:00)
[2018-07-30] MEDS ORDERED: Omeprazole [Prilosec] 20 MG PO SCH (09:00)
[2018-07-30] MEDS ORDERED: diphenhydrAMINE CAP 25 MG CAPSULE PO ONE (09:14)
[2018-07-30] MEDS ORDERED: DIAZEPAM 5 MG TABLET PO ONE (09:14)
[2018-07-30] MEDS ORDERED: POTASSIUM CHLORIDE RIDER 10 MEQ in PREMIX 1 EACH IV PRN (09:14)
[2018-07-30] MEDS: SODIUM CHLORIDE 0.9% 1,000 ML IV SCH ×2 (09:30→22:33)
[2018-07-30] MEDS: ISOSORBIDE MONONITRATE 30 MG TABLET PO SCH (09:34)
[2018-07-30] MEDS: SOTALOL 80 MG TABLET PO SCH (09:34)
[2018-07-30] MEDS: POTASSIUM CHLORIDE 20 MEQ TABLET PO PRN (09:34)
[2018-07-30] MEDS: PANTOPRAZOLE 40 MG TABLET PO SCH (09:34)
[2018-07-30] MEDS: ASPIRIN EC 81 MG TABLET PO SCH (09:34)
[2018-07-30] MEDS ORDERED: LIDOCAINE 1% 20 ML VIAL ONE (09:46)
[2018-07-30] MEDS ORDERED: MIDAZOLAM 2 MG/2 ML VIAL ONE (09:53)
[2018-07-30] MEDS ORDERED: HYDROmorphone 2 MG/1 ML VIAL ONE (09:53)
[2018-07-30] MEDS ORDERED: ONDANSETRON 4 MG/2 ML VIAL ONE (09:54)
[2018-07-30 09:57] LABS: Apearance,Urine Slightly Hazy (Clear); Bilirubin,Urine Negative (Negative); Blood, Urine Negative (Negative); Glucose,Urine (UA) Negative (Negative); Ketones,Urine Negative (Negative); Mucus,Urine Occasional /LPF (Occasional); Nitrite,Urine Negative (Negative); Protein,Urine Negative; RBC,Urine <1 /HPF (0-4); Squamous Epithelial Cell,Urine Occasional /HPF (0-10); Urine Color Yellow (Yellow); Urine Specific Gravity 1.018 (1.001-1.035); Urine Urobilinogen < 2.0 EU/DL (0.2-1.0); WBC,Urine 1 /HPF (0-6)
[2018-07-30] MEDS ORDERED: HEPARIN 5,000 UNIT/1 ML VIAL ONE (10:33)
[2018-07-30] MEDS ORDERED: NALOXONE 0.4 MG/ML VIAL ONE (12:43)
[2018-07-30] MEDS ORDERED: FLUMAZENIL 1 MG/10 ML VIAL IV ONE (12:44)
[2018-07-30] MEDS ORDERED: NALOXONE 0.4 MG/ML VIAL IV ONE (13:06)
[2018-07-30 14:48] LABS: Troponin I 0.256 NG/ML (0.00-0.045)
[2018-07-30] MEDS ORDERED: MAGNESIUM HYDROXIDE SUSP 30 ML UDCUP PO PRN (15:21)
[2018-07-30] MEDS: FUROSEMIDE 40 MG TABLET PO SCH (17:37)
[2018-07-30] MEDS: ASCORBIC ACID 500 MG TABLET PO SCH ×2 (17:37→20:58)
[2018-07-30] MEDS: MULTIVITAMIN (CENTRUM) TABLET PO SCH ×2 (17:37→20:58)
[2018-07-30] MEDS ORDERED: ROSUVASTATIN 10 MG TABLET PO SCH (21:00)
[2018-07-30] MEDS: dilTIAZem Drip 125 MG/125 ML PREMIX IV SCH (22:37)
[2018-07-31] MEDS: SODIUM CHLORIDE 0.9% 1,000 ML IV SCH ×2 (02:47→06:12)
[2018-07-31 04:02] LABS: Basophils # 0.1 10*3/uL (0.0-0.2); Basophils % 0.5 % (0.0-0.8); Eosinophils # 0.4 10*3/uL (0.0-0.87); Eosinophils % 4.2 % (0.00-10.9); Hemoglobin 9.6 GM/DL (12.0-16.0); Immature Granulocytes % 0.5 %; Immature Granulocytes Absolute 0.05 #; Lymphocytes # 1.4 10*3/uL (1.4-4.0); Lymphocytes % 14.7 % (21.3-54.2); Mean Corpuscular Hemoglobin 32 PG (27-34); Mean Corpuscular Volume 99.3 FL (87-102); Mean Platelet Volume 11.1 FL (9.6-12.0); Monocytes # 1.3 10*3/uL (0.11-0.8); Monocytes % 13.5 % (1.7-12.7); Neutrophils # 6.2 10*3/uL (1.4-7.4); Neutrophils % 66.6 % (38.7-73.9); Platelet Count 218 T/CUMM (130-400); Red Blood Count 3.02 MC/CUMM (3.8-5.5); Red Cell Distribution Width 13.1 % (9.3-17.3); White Blood Count 9.3 T/CUMM (4-12)
[2018-07-31 04:18] LABS: Calcium 8.4 MG/DL (8.5-10.1); Osmolality,Calculated 279.4 MOS/KG (273-304); Potassium 3.9 MMOL/L (3.5-5.1)
[2018-07-31 04:23] LABS: Troponin I 0.409 NG/ML (0.00-0.045)
[2018-07-31 08:28] VITALS: BP 104/74
[2018-07-31] MEDS: POTASSIUM CHLORIDE 20 MEQ TABLET PO PRN (09:07)
[2018-07-31] MEDS: ISOSORBIDE MONONITRATE 30 MG TABLET PO SCH (09:07)
[2018-07-31] MEDS: PANTOPRAZOLE 40 MG TABLET PO SCH (09:07)
[2018-07-31] MEDS: MULTIVITAMIN (CENTRUM) TABLET PO SCH (09:07)
[2018-07-31] MEDS: ASPIRIN EC 81 MG TABLET PO SCH (09:07)
[2018-07-31] MEDS: FUROSEMIDE 40 MG TABLET PO SCH (09:07)
[2018-07-31] MEDS: ASCORBIC ACID 500 MG TABLET PO SCH (09:08)
[2018-07-31] MEDS ORDERED: TICAGRELOR 90 MG TABLET PO SCH (11:00)
[2018-07-31] MEDS ORDERED: SOTALOL 80 MG TABLET PO SCH (12:18)
[2018-07-31] MEDS ORDERED: METOPROLOL SUCCINATE XL 25 MG TABLET PO SCH (12:30)
== END 2018-07-31 12:19 | disposition home or self-care (01) ==
LOC: N.EDINP 11:51 → N.ED 11:51 → N.TELES 15:10
PROVIDERS: ADMIT Internal Medicine Cardiovascular Disease; ATTEND Internal Medicine Cardiovascular Disease

== ENCOUNTER 2018-09-05 10:40 | Observation (INO) ==
[2018-09-05 11:55] LABS: Apearance,Urine CLEAR (Clear); Bilirubin,Urine Negative (Negative); Blood, Urine Negative (Negative); Glucose,Urine (UA) Negative (Negative); Ketones,Urine Negative (Negative); Nitrite,Urine Negative (Negative); Protein,Urine Negative; RBC,Urine <1 /HPF (0-4); Urine Color Colorless (Yellow); Urine Specific Gravity 1.004 (1.001-1.035); Urine Urobilinogen < 2.0 EU/DL (0.2-1.0); WBC,Urine <1 /HPF (0-6)
[2018-09-05 11:57] LABS: Basophils # 0.1 10*3/uL (0.0-0.2); Basophils % 0.8 % (0.0-0.8); Eosinophils # 0.3 10*3/uL (0.0-0.87); Eosinophils % 3.6 % (0.00-10.9); Hemoglobin 12.5 GM/DL (12.0-16.0); Immature Granulocytes % 0.4 %; Immature Granulocytes Absolute 0.03 #; Lymphocytes # 1.9 10*3/uL (1.4-4.0); Lymphocytes % 22.1 % (21.3-54.2); Mean Corpuscular HGB Conc 32.1 GM/DL (32-36); Mean Corpuscular Hemoglobin 31 PG (27-34); Mean Platelet Volume 11.2 FL (9.6-12.0); Monocytes # 1.1 10*3/uL (0.11-0.8); Monocytes % 13.3 % (1.7-12.7); Neutrophils % 59.8 % (38.7-73.9); Platelet Count 273 T/CUMM (130-400); Red Blood Count 4.02 MC/CUMM (3.8-5.5); Red Cell Distribution Width 12.7 % (9.3-17.3); White Blood Count 8.4 T/CUMM (4-12)
[2018-09-05 12:02] LABS: PT Patient Result 10.9 SECS; Partial Thromboplastin Time 24.7 SECS (0-40)
[2018-09-05 12:19] LABS: Albumin 4.2 G/DL (3.4-5.0); Bilirubin,Total 0.9 MG/DL (0.2-1.0); Calcium 9.1 MG/DL (8.5-10.1); Potassium 3.2 MMOL/L (3.5-5.1); Thyroid Stimulating Hormone 2.78 uIU/ml (0.358-3.74)
[2018-09-05 12:29] LABS: Barbiturates Screen,Urine Negative (Negative); Benzodiazepines Screen,Urine Negative (Negative); Cannabinoid Screen,Urine Negative (Negative); Opiate Screen,Urine Negative (Negative); Phencyclidine Screen,Urine Negative (Negative)
[2018-09-05] MEDS ORDERED: ACETAMINOPHEN 325 MG TABLET PO PRN (13:59)
[2018-09-05] MEDS ORDERED: MAGNESIUM SULF RIDER 2 GM in PREMIX 1 EACH IV PRN (13:59)
[2018-09-05] MEDS ORDERED: ONDANSETRON 4 MG/2 ML VIAL IV PRN (13:59)
[2018-09-05] MEDS ORDERED: diphenhydrAMINE CAP 25 MG CAPSULE PO PRN (13:59)
[2018-09-05] MEDS ORDERED: LACTULOSE 20 GM/30 ML UDCUP PO PRN (13:59)
[2018-09-05] MEDS ORDERED: MAGNESIUM SULF RIDER 4 GM in PREMIX 1 EACH IV PRN (13:59)
[2018-09-05] MEDS ORDERED: DOCUSATE SODIUM 100 MG CAPSULE PO PRN (13:59)
[2018-09-05] MEDS ORDERED: PROMETHAZINE 25 MG TABLET PO PRN (13:59)
[2018-09-05] MEDS ORDERED: BISACODYL 5 MG TABLET PO PRN (13:59)
[2018-09-05] MEDS ORDERED: NITROGLYCERIN SL 0.4 MG TABLET SL PRN (14:17)
[2018-09-05] MEDS: POTASSIUM CHLORIDE 20 MEQ TABLET PO PRN ×4 (16:44→21:47)
[2018-09-05] MEDS ORDERED: ROSUVASTATIN 10 MG TABLET PO SCH (21:00)
[2018-09-05] MEDS: SOTALOL 80 MG TABLET PO SCH (21:42)
[2018-09-05] MEDS: ASCORBIC ACID 500 MG TABLET PO SCH (21:43)
[2018-09-05] MEDS: MULTIVITAMIN (CENTRUM) TABLET PO SCH (21:43)
[2018-09-05] MEDS: TICAGRELOR 90 MG TABLET PO SCH (21:43)
[2018-09-05] MEDS: DOCUSATE SODIUM 100 MG CAPSULE PO SCH (21:45)
[2018-09-06 05:06] LABS: Basophils # 0.1 10*3/uL (0.0-0.2); Basophils % 0.9 % (0.0-0.8); Eosinophils # 0.4 10*3/uL (0.0-0.87); Eosinophils % 5.3 % (0.00-10.9); Hematocrit 33.6 VOL% (35.7-47.0); Hemoglobin 10.9 GM/DL (12.0-16.0); Immature Granulocytes % 0.3 %; Immature Granulocytes Absolute 0.02 #; Lymphocytes # 2.8 10*3/uL (1.4-4.0); Lymphocytes % 36.1 % (21.3-54.2); Mean Corpuscular HGB Conc 32.4 GM/DL (32-36); Mean Corpuscular Hemoglobin 31 PG (27-34); Mean Corpuscular Volume 96.3 FL (87-102); Mean Platelet Volume 11.8 FL (9.6-12.0); Monocytes % 12.6 % (1.7-12.7); Neutrophils # 3.4 10*3/uL (1.4-7.4); Neutrophils % 44.8 % (38.7-73.9); Platelet Count 238 T/CUMM (130-400); Red Blood Count 3.49 MC/CUMM (3.8-5.5); Red Cell Distribution Width 12.9 % (9.3-17.3); White Blood Count 7.7 T/CUMM (4-12)
[2018-09-06 05:27] LABS: Blood Urea Nitrogen 16 MG/DL (7-18); Calcium 8.9 MG/DL (8.5-10.1); Glucose 96 MG/DL (74-106); Osmolality,Calculated 286.8 MOS/KG (273-304); Sodium 144 MMOL/L (136-145); Troponin I 0.039 NG/ML (0.00-0.045)
[2018-09-06] MEDS: SOTALOL 80 MG TABLET PO SCH (08:40)
[2018-09-06] MEDS: TICAGRELOR 90 MG TABLET PO SCH (08:41)
[2018-09-06] MEDS: DOCUSATE SODIUM 100 MG CAPSULE PO SCH (08:41)
[2018-09-06] MEDS: MULTIVITAMIN (CENTRUM) TABLET PO SCH (08:41)
[2018-09-06] MEDS: ASCORBIC ACID 500 MG TABLET PO SCH (08:42)
[2018-09-06] MEDS ORDERED: POTASSIUM CHLORIDE 20 MEQ TABLET PO SCH (09:00)
[2018-09-06] MEDS ORDERED: ISOSORBIDE MONONITRATE 30 MG TABLET PO SCH (09:00)
[2018-09-06] MEDS ORDERED: FUROSEMIDE 40 MG TABLET PO SCH (09:00)
[2018-09-06] MEDS ORDERED: ASPIRIN EC 81 MG TABLET PO SCH (09:00)
[2018-09-06] MEDS ORDERED: PANTOPRAZOLE 40 MG TABLET PO SCH ×2 (09:00)
[2018-09-06 11:54] VITALS: BP 115/60
== END 2018-09-06 14:07 | disposition home or self-care (01) ==
LOC: N.ED 10:40 → N.EDINP 10:40 → N.TELEN 14:49
PROVIDERS: ADMIT Internal Medicine Clinical Cardiac Electrophysiology; ATTEND Internal Medicine Clinical Cardiac Electrophysiology